=== PATIENT | male | born 1960 | race Caucasian/White ===

== ENCOUNTER 2019-02-12 22:05 | Emergency (ER) | payer SELFPAY ==
[2019-02-12 22:24] VITALS: RESP 16
[2019-02-13 00:28] LABS: BASO # 0.1 K/uL (0.0-0.2); BASO % 0.6 % (0.0-2.0); EOS # 0.7 K/uL (0.0-0.7); EOS % 6.1 % (0.0-4.0); HEMOGLOBIN 13.5 g/dL (12.0-18.0); LYMPH # 0.8 K/uL (1.0-4.3); LYMPH % 7.2 % (20.0-40.0); MEAN CELL VOLUME 85.2 fL (80.0-94.0); MEAN CORPUSCULAR HEMOGLOBIN 30.5 pg (27.0-31.0); MEAN CORPUSCULAR HGB CONC 35.8 g/dL (33.0-37.0); MEAN PLATELET VOLUME 7.1 fL (7.2-11.7); MONO % 8.7 % (0.0-10.0); NEUT # 8.7 K/uL (1.8-7.0); NEUT % 77.4 % (50.0-75.0); NRBC % 0.1 % (0.0-2.0); PLATELET COUNT 468 K/uL (130-400); RBC 4.43 Mil/uL (4.40-5.90); RED CELL DISTRIBUTION WIDTH 13.9 % (11.5-14.5); WHITE BLOOD COUNT 11.2 K/uL (4.8-10.8)
[2019-02-13 00:33] LABS: ALB/GLOB RATIO 1.4 (1.0-2.1); ALBUMIN 4.2 g/dL (3.5-5.0); ALT/SGPT 18 U/L (21-72); AST/SGOT 31 U/L (17-59); BLOOD UREA NITROGEN 8 mg/dL (9-20); CALCIUM 9.4 mg/dl (8.6-10.4); GFR NON-AFRICAN AMERICAN > 60
[2019-02-13 00:48] LABS: B-TYPE NATRIURETIC PEPTIDE 42.7 pg/mL (0-900)
[2019-02-13 00:55] LABS: URINE BILIRUBIN NEGATIVE (NEGATIVE); URINE BLOOD NEGATIVE (NEGATIVE); URINE CLARITY Clear (Clear); URINE COLOR Yellow (YELLOW); URINE GLUCOSE (UA) NORMAL (Normal); URINE LEUKOCYTE ESTERASE NEG Leu/uL (Negative); URINE PROTEIN NEGATIVE (NEGATIVE); URINE UROBILINOGEN NORMAL mg/dL (0.2-1.0)
[2019-02-13] MEDS ORDERED: Potassium Chloride 20 mEq ER Tab PO STA (01:18)
[2019-02-13] MEDS ORDERED: Potassium Chloride 20 mEq ER Tab PO ONE (01:35)
--- NOTE | 2019-02-13 01:36 | C.PDOC ---
History Of Present Illness 58 year old male, whose past medical history includes hypertension, presents to the ED for evaluation swelling to bilateral extremities and intermittent dyspnea on exertion which began around 4 days ago. Patient reports history of swelling to his lower extremities in the past. He denies fever, chills, chest pain, nausea, vomiting and recent travel. Chief Complaint (Nursing): Lower Extremity Problem/Injury History Per: Patient History/Exam Limitations: no limitations Onset/Duration Of Symptoms: Days (4), Intermittent Episodes Current Symptoms Are (Timing): Still Present Additional History Per: Patient Past Medical History Reviewed: Historical Data, Nursing Documentation, Vital Signs Vital Signs: Last Vital Signs Temp 98 F 02/12/19 22:21 Pulse 86 02/12/19 22:21 Resp 16 02/12/19 22:21 BP 126/76 02/12/19 22:21 Pulse Ox 97 02/12/19 22:21 - Medical History PMH: HTN Denies: Alzheimer's Disease, Dementia, Emphysema, Hyperthyroidism, Hypothyroidism, Kidney Stones, Migraine, Multiple Sclerosis, Parkinson's Disease, Pneumonia, Pulmonary Embolism, Chronic Kidney Disease, Seizures, Sleep Apnea, TIA Surgical History: No Surg Hx Family History: States: Unknown Family Hx - Social History Hx Tobacco Use: No (DENIED) Hx Alcohol Use: Yes Hx Substance Use: No (DENIED) - Immunization History Hx Tetanus Toxoid Vaccination: No Hx Influenza Vaccination: No Hx Pneumococcal Vaccination: No Review Of Systems Cardiovascular: Negative for: Chest Pain Respiratory: Positive for: SOB with Excertion Gastrointestinal: Negative for: Nausea, Vomiting Musculoskeletal: Positive for: Other (swelling to bilateral lower extremities ) Physical Exam - Physical Exam Appears: Non-toxic, No Acute Distress Skin: Normal Color, Warm, Dry Head: Atraumatic, Normacephalic Eye(s): bilateral: Normal Inspection Oral Mucosa: Moist Neck: Supple Chest: Symmetrical, No Deformity, No Tenderness Cardiovascular: Rhythm Regular, No Murmur Respiratory: Normal Breath Sounds, No Rales, No Rhonchi, No Wheezing Extremity: Normal ROM, Capillary Refill (less than 2 seconds ), Other (3+ pitting edema to bilateral lower extremities ) Pulses: Left Dorsalis Pedis: Normal, Right Dorsalis Pedis: Normal Neurological/Psych: Oriented x3, Normal Speech, Normal Cognition, Normal Sensation ED Course And Treatment - Laboratory Results Result Diagrams: 02/13/19 00:17 02/13/19 00:17 Lab Results: Troponin I < 0.0120 ng/mL (0.00-0.120) 02/13/19 00:17 NT-Pro-B Natriuret Pep 42.7 pg/mL (0-900) 02/13/19 00:17 Total Bilirubin 0.9 mg/dL (0.2-1.3) 02/13/19 00:17 AST 31 U/L (17-59) 02/13/19 00:17 ALT 18 U/L (21-72) L D 02/13/19 00:17 Alkaline Phosphatase 70 U/L (38-126) 02/13/19 00:17 Total Protein 7.1 g/dL (6.3-8.3) 02/13/19 00:17 Albumin 4.2 g/dL (3.5-5.0) 02/13/19 00:17 Globulin 3.0 gm/dL (2.2-3.9) 02/13/19 00:17 Albumin/Globulin Ratio 1.4 (1.0-2.1) 02/13/19 00:17 Urine Color Yellow (YELLOW) 02/13/19 00:49 Urine Clarity Clear (Clear) 02/13/19 00:49 Urine pH 6.0 (5.0-8.0) 02/13/19 00:49 Ur Specific [place] 1.003 (1.003-1.030) 02/13/19 00:49 Urine Protein Negative mg/dL (NEGATIVE) 02/13/19 00:49 Urine Glucose (UA) Normal mg/dL (Normal) 02/13/19 00:49 Urine Ketones Negative mg/dL (NEGATIVE) 02/13/19 00:49 Urine Blood Negative (NEGATIVE) 02/13/19 00:49 Urine Nitrate Negative (NEGATIVE) 02/13/19 00:49 Urine Bilirubin Negative (NEGATIVE) 02/13/19 00:49 Urine Urobilinogen Normal mg/dL (0.2-1.0) 02/13/19 00:49 Ur Leukocyte Esterase Neg [place]/uL (Negative) 02/13/19 00:49 Urine WBC (Auto) < 1 /hpf (0-5) 02/13/19 00:49 Urine RBC (Auto) < 1 /hpf (0-3) 02/13/19 00:49 ECG: Interpreted By Me, Viewed By Me ECG Rhythm: Sinus Rhythm Interpretation Of ECG: Normal Sinus Rhythm at rate 71bpm. 1st Degree AV Block and Left Altheimer Deviation noted. No ST elevation. Rate From EC O2 Sat by Pulse Oximetry: 97 (on RA) Pulse Ox Interpretation: Normal - Radiology CXR: Interpreted by Me CXR Interpretation: Yes: Other (negative ) Medical Decision Making Medical Decision Making: Progress: Bloodwork, urinalysis, CXR, and EKG ordered and reviewed. Potassium Chloride PO given. Disposition Counseled Patient/Family Regarding: Studies Performed, Diagnosis, Need For Followup - Disposition Referrals: Jean Schmidt MD [IM] - Disposition: HOME/ ROUTINE Disposition Time: 06:09 Condition: STABLE Additional Instructions: LEE ANN KIRBY, thank you for letting us take care of you today. Your provider was Geni Valle MD and you were treated for LOWER EXTREMITY PROBLEM/INJURY. The emergency medical care you received today was directed at your acute symptoms. If you were prescribed any medication, please fill it and take as directed. It may take several days for your symptoms to resolve. Return to the Emergency Department if your symptoms worsen, do not improve, or if you have any other problems. Please contact your doctor in 1-2 days for a follow up appointment. Bring any paperwork you were given at discharge with you along with any medications you are taking to your follow up visit. Our treatment cannot replace ongoing medical care by a primary care provider outside of the emergency department. Thank you for allowing the [facility] team to be part of your care today. If you had an X-Ray or CT scan: A Radiologist will review the ED reading if any change in treatment is needed we will contact you. If you had a blood, urine, or wound culture: It will take several days for the results, if any change in treatment is needed we will contact you. If you had an STI test: It will take 48 hours for the results. Please call after 1 week if you have not heard back. Instructions: Dependent Edema (DC), Hypokalemia (DC) Forms: [employer] (Turkish), General Discharge Instructions - POA Present On Arrival: None - Clinical Impression Clinical Impression: Edema of both lower extremities, Hypokalemia - Scribe Statement The provider has reviewed the documentation as recorded by the Scribe (Shae Stahl) Provider Attestation: All medical record entries made by the Scribe were at my direction and personally dictated by me. I have reviewed the chart and agree that the record accurately reflects my personal performance of the history, physical exam, med ica decision making, and the department course for this patient. I have also personally directed, reviewed, and agree with the discharge instructions and disposition.
[2019-02-13 01:57] LABS: BASOPHIL 1 % (0-2); EOSINOPHIL 5 % (0-4); LYMPHOCYTE 9 % (20-40); MONOCYTE 12 % (0-10); NEUTROPHIL 73 % (50-75); PLATELET ESTIMATE SLIGHTLY INCREASED (NORMAL); TOTAL CELLS COUNTED 100
[2019-02-13 07:16] VITALS: BP 133/79; PULSE 83; TEMP 97.7; O2SAT 98
--- NOTE | 2019-02-13 09:35 | RAD ---
Date of service: 02/12/2019 HISTORY: SOB COMPARISON: Comparison made with chest radiograph dated 11/26/2014 TECHNIQUE: 1 view obtained. FINDINGS: LUNGS: . Suspect minor left basilar atelectasis and or scarring PLEURA: No significant pleural effusion identified, no pneumothorax apparent. CARDIOVASCULAR: No aortic atherosclerotic calcification present. Heart size is borderline enlarged. No pulmonary vascular congestion. OSSEOUS STRUCTURES: No significant abnormalities. VISUALIZED UPPER ABDOMEN: Normal. OTHER FINDINGS: None. IMPRESSION: No active disease. Suspect minor left basilar atelectasis and/or scarring
--- NOTE | 2019-02-15 21:45 | CARD ---
APPROVED REPORT Date of service: 02/13/2019 EKG Measurement Heart [id number] <Conclusion> Normal sinus rhythm Left axis deviation Abnormal ECG
== END 2019-02-13 07:00 | disposition home or self-care (01) ==
LOC: C.ER 22:05
DX: R60.0 Localized edema (principal); E87.6 Hypokalemia; I10 Essential (primary) hypertension; Z87.891 Personal history of nicotine dependence